=== PATIENT | female | born 1995 | race Caucasian/White ===

== ENCOUNTER → 2017-09-20 | Outpatient (CLI) | payer BC ==
--- NOTE | 2017-09-20 13:24 | RADIOLOGY IMAGING REPORT ---
FACILITY: [facility] PATIENT NAME: Taylor Cheng : 1995 MR: [id number] V: [id number] EXAM DATE: ORDERING PHYSICIAN: BHARTI PRADHAN TECHNOLOGIST: Location: [facility] [place] Patient: Taylor Cheng : 1995 Visit/Account:[id number] Date of Sevice: 09/20/2017 ELBOW LEFT W/O CONTRAST COMPARISON: Left elbow radiographs September 18, 2017. HISTORY: Left elbow pain, radial head fracture. TECHNIQUE: Noncontrast axial CT of the left elbow with coronal and sagittal reformats. One of the following dose optimization techniques was utilized in the performance of this exam: auto mated exposure control; adjustment of the mA and/or kV according to patient size; or use of iterative reconstruction technique. Specific details can be referenced in the facility's radiology CT exam op erational policy. CONTRAST: None. FINDINGS: BONES : Acute intra-articular fracture of the ulnar aspect of the left radial head involving just un lulu 50% of the circumference of the radial head, essentially nondisplaced although there is mild impa ction causing cortical offset of about 1 mm. The proximal ulna and distal humerus are intact and ther e are no degenerative changes or bone lesions. Elbow alignment is normal. FLUID: Small elbow effusion. No soft tissue hematoma. SOFT TISSUES: Unremarkable. No focal muscle atrophy or appreciable muscle edema. OTHER: Negative. IMPRESSION: Acute intra-articular fracture of the left radial head with mild impaction.. Report Dictated By: Allen Davis at 09/20/2017 1:14 PM Report E-Signed By: Allen Davis at 09/20/2017 1:19 PM WSN:[id number]
== END ==
LOC: CT 09:11
PROVIDERS: ATTEND Orthopaedic Surgery
DX: S52.122A Displaced fracture of head of left radius, initial encounter for closed fracture (principal)